=== PATIENT | female | born 1945 | race Caucasian/White ===

== ENCOUNTER 2020-02-22 16:24 | Emergency (ER) | payer OTHER ==
[~2020-02-22] VITALS: Ht 162.6 cm; Wt 53.5 kg
[2020-02-22 16:36] VITALS: BP 160/100
--- NOTE | 2020-02-22 16:37 | NUR ---
PT PLACED IN ER LOBBY TO WAIT FOR AVAILABLE BED. PT PLACED IN W/C BY EMS AND ASSISTED TO LOBBY.
--- NOTE | 2020-02-22 17:00 | NUR ---
BIBA FROM THE TRAIN STATION C/O BILATERAL ARM WEAKNESS X3 MONTHS. TRANSIENT HX DENIES RX DENIES
--- NOTE | 2020-02-22 18:11 | NUR ---
BLOOD SUGAR 115 AT THIS TIME. Addendum: 02/22/20 at 1828 by MED1 C/O DIZZINESS 1 HOUR AGO.
[2020-02-22 19:30] VITALS: BP 160/100
--- NOTE | 2020-02-22 19:30 | NUR ---
SEEN AND EXAMINED BY YUE
--- NOTE | 2020-02-22 20:15 | NUR ---
Patient discharged with v/s stable. Written and verbal after care instructions given and explained. Patient verbalized understanding. Ambulatory with steady gait. All questions addressed prior to discharge. Advised to follow up with PMD.FOOD WAS PROVIDED. TO SEE THE PILLOWCASE CUTTER IN AM.
== END 2020-02-22 20:15 | disposition home or self-care (01) ==
LOC: MED 16:24
DX: R53.1 Weakness (principal); Z59.0 Homelessness
CPT/HCPCS: 99283